=== PATIENT | male | born 1955 | race Caucasian/White ===

== ENCOUNTER 2019-12-26 09:06 | Outpatient (REF) | payer BC, SELFPAY | END 2019-12-26 09:07 | disposition home or self-care (01) | LOC: HO.LAB 09:06 | PROVIDERS: PCP Internal Medicine; Visit Provider Internal Medicine | DX: Z20.828 Contact with and (suspected) exposure to other viral communicable diseases (principal) | CPT/HCPCS: 87635 ==

== ENCOUNTER 2020-08-13 12:27 | Outpatient (REF) | payer BC, SELFPAY ==
--- NOTE | ~2020-08-13 | XR_ITS ---
EXAMINATION: XR CHEST CLINICAL INFORMATION: Shortness of breath COMPARISON: None TECHNIQUE: 2 views of the chest were obtained. FINDINGS: The cardiac and mediastinal contours are normal. There is a nodular density projecting over the right upper lobe. This measures 1 cm and abuts the right anterior first rib. There is a second retrosternal abnormal density seen on the lateral view that measures approximately 1.7 x 2.7 cm. The lungs are otherwise clear. The lungs appear well inflated questionable for COPD. There is no pleural effusion or pneumothorax. There are degenerative changes of the spine. XR/XR chest 2V IMPRESSION: Question pulmonary nodules. Follow-up chest CT scan should be considered.
== END 2020-08-13 12:28 | disposition home or self-care (01) ==
LOC: HO.HMGCX 12:27
PROVIDERS: PCP Internal Medicine; Visit Provider Nurse Practitioner Family
DX: R05 Cough (principal); R06.02 Shortness of breath
CPT/HCPCS: 71046

== ENCOUNTER 2020-09-04 09:32 | Outpatient (REF) | payer BC, SELFPAY ==
--- NOTE | ~2020-09-04 | CT_ITS ---
EXAMINATION: CT CHEST WITH CONTRAST CLINICAL INFORMATION: Question pulmonary nodule COMPARISON: X-ray 08/13/2020 TECHNIQUE: Multidetector volumetric CT imaging of the chest was obtained after the administration of 50 mL of Omnipaque 350 intravenous contrast without immediate adverse reactions. Axial MIP volume rendering provided. Sagittal and coronal reformatted images were obtained. This CT examination was performed using dose optimization techniques as appropriate, variously including the following: *Automated exposure control *Adjustment of mA and/or kV according to patient size (this includes techniques or standardized protocols for targeted exams where dose is matched to indication/reason for exam; i.e. extremities or head) *Use of iterative reconstruction technique DLP: 183 mGy-cm FINDINGS: [employer]: Unremarkable LUNGS: The lungs are well-expanded with no visible pulmonary nodule, mass or consolidation. MEDIASTINUM: The thyroid lobes are symmetric and normal. The central trachea and the bronchi are widely patent. The heart size and the great vessels are normal caliber there are coronary artery calcifications present. There is no pericardial effusion. There are benign mediastinal lymph nodes. PLEURA: There is no pleural effusion. No pleural mass or thickening. AXILLA: No lymphadenopathy. UPPER ABDOMEN: The liver is diffusely attenuated. No focal lesion or mass seen. No intrahepatic ductal dilatation. OSSEOUS STRUCTURES: There is moderate ventral spondylosis mid and lower dorsal spine. No lytic or sclerotic process seen. CT/CT chest w con IMPRESSION: No pulmonary nodules seen. Essentially unremarkable CT chest exam.
[2020-09-04] MEDS: iohexoL 350 MG/ML 100 ML INFUS..BTL IV (10:59)
== END 2020-09-04 09:33 | disposition home or self-care (01) ==
LOC: HO.CT 09:32
PROVIDERS: PCP Internal Medicine; Visit Provider Internal Medicine
DX: R91.8 Other nonspecific abnormal finding of lung field (principal); I10 Essential (primary) hypertension; E11.65 Type 2 diabetes mellitus with hyperglycemia
CPT/HCPCS: 71260; Q9967

== ENCOUNTER 2021-10-07 17:52 | Emergency (ER) | payer BC, SELFPAY ==
--- NOTE | ~2021-10-07 | XR_ITS ---
EXAMINATION: XR CHEST CLINICAL INFORMATION: Short of breath COMPARISON: 08/13/2020 TECHNIQUE: Frontal view of the chest was obtained. FINDINGS: Cardiac leads overlie the chest. The lungs are well expanded. Moderate right-sided pleural effusion with airspace opacity. Central vascular prominence. No pneumothorax. The cardiomediastinal silhouette is within normal limits. XR/XR chest 1V IMPRESSION: Moderate right pleural effusion with airspace opacity which could be atelectasis or pneumonia. Evidence of mild fluid overload.
--- NOTE | 2021-10-07 17:57 | ECG_ITS ---
Test Reason : CP Blood Pressure : / mmHG Vent. Rate : 063 BPM Atrial Rate : 000 BPM P-R Int : 000 ms QRS Dur : 082 ms QT Int : 432 ms P-R-T Axes : 000 -06 077 degrees QTc Int : 442 ms Normal sinus rhythm with 1st degree A-V block with junctional escape Nonspecific T wave abnormality Abnormal ECG When compared with ECG of 07-OCT-2021 17:59, Premature ventricular complexes are not present Referred By: Nia Adams Electronically Signed By:LILLI BUSH MD
[2021-10-07 18:01] VITALS: BP 206/80; PULSE 57; RESP 22; TEMP 37.2; O2SAT 88; BMI 32.1
[2021-10-07 18:15] LABS: MANUAL DIFF FLAG NO
[2021-10-07 18:29] LABS: Basophils Absolute Auto 0.1 X10*3/uL (0.0-0.2); Basophils Percent Auto 0.5 % (0-2); Eosinophils Absolute Auto 0.3 X10*3/uL (0.0-0.4); Eosinophils Percent Auto 2.5 % (0-4); Hematocrit 35.7 % (42.0-52.0); Hemoglobin 11.9 g/dl (14.0-18.0); Imm Gran Abs Auto 0.03 X10*3/uL (0.00-0.03); Imm Gran Pct Auto 0.3 % (0.0-0.4); Lymphocytes Percent Auto 19.5 % (20-40); Mean Corpuscular HGB Conc 33.3 g/dl (31.0-36.0); Mean Corpuscular Hemoglobin 29.5 pg (27.0-33.0); Mean Corpuscular Volume 88.6 fL (80.0-98.0); Mean Platelet Volume 9.9 fL (9.4-12.4); Monocytes Absolute Auto 0.9 X10*3/uL (0.1-1.2); Monocytes Percent Auto 8.5 % (2-11); Neutrophils Absolute Auto 6.9 x10*3/uL (2.0-8.3); Neutrophils Percent Auto 68.7 % (45-73); Platelet Count 358 X10*3/uL (160-400); Red Blood Count 4.03 X10*6/uL (4.60-5.80); Red Cell Distribution Width 13.3 % (11.0-16.0); White Blood Count 10.1 X10*3/uL (4.8-10.8)
[2021-10-07 18:37] LABS: COVID-19 Test Negative (Negative)
[2021-10-07 18:47] LABS: Alanine Aminotransferase 10 U/L (0-40); Albumin Level 2.8 g/dL (3.5-5.0); Alkaline Phosphatase 104 U/L (39-117); Anion Gap 14 (12-20); Aspartate Amino Transferase 16 U/L (5-37); Bilirubin Total 0.3 mg/dL (0.0-1.0); Blood Urea Nitrogen 20 mg/dL (9-16); Calcium 8.4 mg/dL (8.4-10.2); Carbon Dioxide 27 mmol/L (22-29); Chloride 102 mmol/L (96-108); Creatinine Clr Calc Pharmacy 72.4; Estimated Glomerular Filt Rate 52; Glucose Random 180 mg/dL (60-115); Potassium 4.5 mmol/L (3.3-5.1); Sodium 138 mmol/L (135-145); Total Protein 6.3 g/dL (6.5-8.0)
[2021-10-07 18:50] LABS: B Type Natriuretic Peptide 1213 pg/mL (<100)
--- NOTE | 2021-10-07 18:55 | ED.SOB ---
HPI - SOB/Dyspnea General Chief Complaint: Dyspnea Stated Complaint: Diff Breathing Time Seen by Provider: 10/07/21 18:36 Source: patient and family () Mode of arrival: ambulatory History of Present Illness HPI Narrative: 66-year-old male who is an everyday smoker now with presentation for 2-3 weeks of worsening shortness of breath, lower extremity swelling, cough without fever or chills, recent travel to [place] denies any chest pain/palpitations, GI or symptoms. Patient is diabetic and is currently on antihypertensives as well as Lasix, metformin and insulin. In addition, patient has COPD but is not reliant on oxygen. Related Data Home Medications Medication Instructions Recorded Confirmed amlodipine 5 mg tablet 5 mg PO DAILY 08/13/20 atorvastatin 40 mg tablet 40 mg PO BEDTIME 08/13/20 blood sugar diagnostic #10 ea 08/13/20 empagliflozin 10 mg tablet 10 mg PO DAILY 08/13/20 gabapentin 300 mg capsule mg PO 08/13/20 ibuprofen 800 mg tablet 800 mg PO BEDTIME 08/13/20 lancets 30 gauge #100 ea 08/13/20 lisinopril 20 mg tablet 20 mg PO DAILY 08/13/20 metformin 500 mg tablet,extended 500 mg PO DAILY 08/13/20 release 24 hr pen needle, diabetic 32 gauge x #50 ea 08/13/20 5/32 sub-q insulin device, 20 unit #30 ea 08/13/20 Previous Rx's Medication Instructions Recorded albuterol sulfate 90 mcg/actuation 2 puff inhalation Q4-6H PRN 08/13/20 aerosol inhaler shortness of breath or wheezing #8.5 grams benzonatate 100 mg capsule 100 mg PO BID-TID PRN cough #20 08/13/20 caps doxycycline monohydrate 100 mg 100 mg PO BID 10 days #20 caps 08/13/20 capsule prednisone 20 mg tablet 40 mg PO DAILY 5 days #10 tabs 08/13/20 Allergies Allergy/AdvReac Type Severity Reaction Status Date / Time No Known Allergies Allergy Verified 10/07/21 18:00 Review of Systems Review of Systems: Pertinent positives and negatives as stated in HPI and 10 point review of systems is otherwise negative. PMFSH Past Medical History Source: nursing notes reviewed Social History Social History Advance Directives: No Advance Directives Information Provided: No Physical Exam Vital Signs: Vital Signs: Last Vital Signs Temp 98.5 F 10/07/21 19:59 Pulse 56 10/07/21 19:59 Resp 25 H 10/07/21 19:59 BP 211/88 H 10/07/21 19:59 Pulse Ox 95 10/07/21 19:59 O2 Del Method 10/07/21 18:01 O2 Flow Rate 2.5 10/07/21 19:59 BMI result Body Mass Index 32.5 VITAL SIGNS: Reviewed. GENERAL: Well developed, well nourished, in no acute distress. HEAD: Normocephalic/atraumatic EYES: PERRLA, EOMI EARS: Ext canals without abnormality OROPHARYNX: no oral lesions noted, posterior pharynx clear LUNGS: Good inspiratory effort with decreased breath sounds in the bases, right greater than left, no wheeze/rhonchi/rales. SpO2<88> on room air and when placed on 2 L via nasal cannula responded well and is now saturating at 95% CARDIOVASCULAR: Regular rate and rhythm without noted murmurs, no JVD but bilateral lower extremity 1+ pitting edema ABDOMEN: Soft, non-tender, non-distended with bowel sounds. No rigidity. No guarding. No palpable masses or hernias noted MUSCULOSKELETAL: No tenderness, deformities, or effusions noted on gross inspection. EXTREMITIES: No cyanosis, clubbing or edema. SKIN: Inspection of the skin reveals no rashes, ulcerations, jaundice, pallor, or petechiae. NEUROLOGIC: Alert and oriented x 4. Strength and sensation to light touch were grossly intact x 4. Course Course Course Narrative: 1845: 66-year-old male with history and clinical presentation and will be evaluated for COPD, CHF, pneumonia, PE. On review of all investigations patient is noted to have questionable Wellens sign that was discussed with Cardiology, troponin is over 1400 and BNP is over 1200. No evidence to suggest COPD exacerbation. Patient is hypoxic and requiring 2 L of nasal cannula but otherwise remains hemodynamically stable. COVID-19 is negative. Reevaluation(s) Reevaluation #1: I discussed case with Cardiology because concerns for Wellens morphology in the precordial leads, however cardiology does not think that is the rhythm but does recommend serial troponins, IV heparin and starting nitrates. Time: 19:07 Reevaluation #2: I discussed this case with Dr. Wilkinson at [facility] who accepts transfer. Time: 19:40 MDM - SOB/Dyspnea Lab Data Result diagrams: 10/07/21 18:03 10/07/21 18:03 Labs: Lab Results 10/07/21 10/07/21 10/07/21 Range/Units 18:03 18:03 18:03 WBC 10.1 (4.8-10.8) X10*3/uL RBC 4.03 L (4.60-5.80) X10*6/uL Hgb 11.9 L (14.0-18.0) g/dl Hct 35.7 L (42.0-52.0) % MCV 88.6 (80.0-98.0) fL MCH 29.5 (27.0-33.0) pg MCHC 33.3 (31.0-36.0) g/dl RDW 13.3 (11.0-16.0) % Plt Count 358 (160-400) X10*3/uL MPV 9.9 (9.4-12.4) fL Immature Gran % (Auto) 0.3 (0.0-0.4) % Neut % (Auto) 68.7 (45-73) % Lymph % (Auto) 19.5 L (20-40) % [place] % (Auto) 8.5 (2-11) % Eos % (Auto) 2.5 (0-4) % Baso % (Auto) 0.5 (0-2) % Lymph # (Auto) 2.0 (1.2-4.9) X10*3/uL [place] # (Auto) 0.9 (0.1-1.2) X10*3/uL Eos # (Auto) 0.3 (0.0-0.4) X10*3/uL Baso # (Auto) 0.1 (0.0-0.2) X10*3/uL Abs Immat Gran (auto) 0.03 (0.00-0.03) X10*3/uL Absolute Neuts (auto) 6.9 (2.0-8.3) x10*3/uL Absolute Nucleated RBC 0.000 (0.0-0.012) X10*3/uL Nucleated RBC % (auto) 0.0 (0.0-0.2) /100WBC PT (10.0-13.1) SEC INR (0.9-1.1) APTT (26.0-36.4) SEC VBG pH (7.32-7.43) VBG pCO2 mmHg VBG pO2 mmHg VBG HCO3 (22-26) mmol/L VBG O2 Saturation % VBG Base Excess mmol/L Sodium 138 (135-145) mmol/L Potassium 4.5 (3.3-5.1) mmol/L Chloride 102 (96-108) mmol/L Carbon Dioxide 27 (22-29) mmol/L Anion Gap 14 (12-20) BUN 20 H (9-16) mg/dL Creatinine 1.38 (0.5-1.4) mg/dL Estim Creat Clear Calc 72.4 Estimated GFR 52 Random Glucose 180 H (60-115) mg/dL Lactic Acid (0.5-2.0) mmol/L Calcium 8.4 (8.4-10.2) mg/dL Total Bilirubin 0.3 (0.0-1.0) mg/dL AST 16 (5-37) U/L ALT 10 (0-40) U/L Alkaline Phosphatase 104 (39-117) U/L Troponin I High Sens 1453.5 H* (<3.5-35.0) ng/L B-Natriuretic Peptide (<100) pg/mL Total Protein 6.3 L (6.5-8.0) g/dL Albumin 2.8 L (3.5-5.0) g/dL COVID-19 (YESSY) (Negative) COVID-19 Clin Com 10/07/21 10/07/21 10/07/21 Range/Units 18:03 18:03 18:57 WBC (4.8-10.8) X10*3/uL RBC (4.60-5.80) X10*6/uL Hgb (14.0-18.0) g/dl Hct (42.0-52.0) % MCV (80.0-98.0) fL MCH (27.0-33.0) pg MCHC (31.0-36.0) g/dl RDW (11.0-16.0) % Plt Count (160-400) X10*3/uL MPV (9.4-12.4) fL Immature Gran % (Auto) (0.0-0.4) % Neut % (Auto) (45-73) % Lymph % (Auto) (20-40) % [place] % (Auto) (2-11) % Eos % (Auto) (0-4) % Baso % (Auto) (0-2) % Lymph # (Auto) (1.2-4.9) X10*3/uL [place] # (Auto) (0.1-1.2) X10*3/uL Eos # (Auto) (0.0-0.4) X10*3/uL Baso # (Auto) (0.0-0.2) X10*3/uL Abs Immat Gran (auto) (0.00-0.03) X10*3/uL Absolute Neuts (auto) (2.0-8.3) x10*3/uL Absolute Nucleated RBC (0.0-0.012) X10*3/uL Nucleated RBC % (auto) (0.0-0.2) /100WBC PT (10.0-13.1) SEC INR (0.9-1.1) APTT (26.0-36.4) SEC VBG pH (7.32-7.43) VBG pCO2 mmHg VBG pO2 mmHg VBG HCO3 (22-26) mmol/L VBG O2 Saturation % VBG Base Excess mmol/L Sodium (135-145) mmol/L Potassium (3.3-5.1) mmol/L Chloride (96-108) mmol/L Carbon Dioxide (22-29) mmol/L Anion Gap (12-20) BUN (9-16) mg/dL Creatinine (0.5-1.4) mg/dL Estim Creat Clear Calc Estimated GFR Random Glucose (60-115) mg/dL Lactic Acid 0.7 (0.5-2.0) mmol/L Calcium (8.4-10.2) mg/dL Total Bilirubin (0.0-1.0) mg/dL AST (5-37) U/L ALT (0-40) U/L Alkaline Phosphatase (39-117) U/L Troponin I High Sens (<3.5-35.0) ng/L B-Natriuretic Peptide 1213 H (<100) pg/mL Total Protein (6.5-8.0) g/dL Albumin (3.5-5.0) g/dL COVID-19 (YESSY) Negative (Negative) COVID-19 Clin Com See Note 10/07/21 10/07/21 Range/Units 19:10 19:25 WBC (4.8-10.8) X10*3/uL RBC (4.60-5.80) X10*6/uL Hgb (14.0-18.0) g/dl Hct (42.0-52.0) % MCV (80.0-98.0) fL MCH (27.0-33.0) pg MCHC (31.0-36.0) g/dl RDW (11.0-16.0) % Plt Count (160-400) X10*3/uL MPV (9.4-12.4) fL Immature Gran % (Auto) (0.0-0.4) % Neut % (Auto) (45-73) % Lymph % (Auto) (20-40) % [place] % (Auto) (2-11) % Eos % (Auto) (0-4) % Baso % (Auto) (0-2) % Lymph # (Auto) (1.2-4.9) X10*3/uL [place] # (Auto) (0.1-1.2) X10*3/uL Eos # (Auto) (0.0-0.4) X10*3/uL Baso # (Auto) (0.0-0.2) X10*3/uL Abs Immat Gran (auto) (0.00-0.03) X10*3/uL Absolute Neuts (auto) (2.0-8.3) x10*3/uL Absolute Nucleated RBC (0.0-0.012) X10*3/uL Nucleated RBC % (auto) (0.0-0.2) /100WBC PT 11.2 (10.0-13.1) SEC INR 1.0 (0.9-1.1) APTT 45.8 H (26.0-36.4) SEC VBG pH 7.33 (7.32-7.43) VBG pCO2 58 mmHg VBG pO2 47 mmHg VBG HCO3 31 H (22-26) mmol/L VBG O2 Saturation 68.0 % VBG Base Excess 3.8 mmol/L Sodium (135-145) mmol/L Potassium (3.3-5.1) mmol/L Chloride (96-108) mmol/L Carbon Dioxide (22-29) mmol/L Anion Gap (12-20) BUN (9-16) mg/dL Creatinine (0.5-1.4) mg/dL Estim Creat Clear Calc Estimated GFR Random Glucose (60-115) mg/dL Lactic Acid (0.5-2.0) mmol/L Calcium (8.4-10.2) mg/dL Total Bilirubin (0.0-1.0) mg/dL AST (5-37) U/L ALT (0-40) U/L Alkaline Phosphatase (39-117) U/L Troponin I High Sens (<3.5-35.0) ng/L B-Natriuretic Peptide (<100) pg/mL Total Protein (6.5-8.0) g/dL Albumin (3.5-5.0) g/dL COVID-19 (YESSY) (Negative) COVID-19 Clin Com Critical Care Time Critical Care Time Critical Care Time: Yes Total Critical Care Time: 30 Attestation: I personally attest to this time spent taking care of the patient. Discharge Plan Discharge Clinical Impression: Non-ST elevation CA (NSTEMI), CHF exacerbation, Third degree heart block Patient Disposition: Xfer Acute Care Hospital Transfer Details: Higher level of care, and STEMI with congestive heart failure and questionable third-degree block Prescriptions: No Action (DME) V-GO 20 Device See Rx Instructions .ROUTE .MEDSUPPLY Qty: 30 Rx Instructions: As directed lisinopril 20 mg tablet 20 mg PO DAILY (DME) pen needle, diabetic 32 gauge x needle See Rx Instructions .ROUTE .MEDSUPPLY Qty: 50 Rx Instructions: As directed metformin 500 mg tablet extended release 24 hr 500 mg PO DAILY Jardiance 10 mg tablet 10 mg PO DAILY (DME) lancets 30 gauge misc See Rx Instructions .ROUTE .MEDSUPPLY Qty: 100 Rx Instructions: As directed (DME) OneTouch Verio test strips Strip See Rx Instructions Not Applicable BID Qty: 10 Rx Instructions: As directed atorvastatin 40 mg tablet 40 mg PO BEDTIME gabapentin 300 mg capsule PO amlodipine 5 mg tablet 5 mg PO DAILY ibuprofen 800 mg tablet 800 mg PO BEDTIME doxycycline monohydrate 100 mg capsule 100 mg PO BID 10 Days Qty: 20 0RF prednisone 20 mg tablet 40 mg PO DAILY 5 Days Qty: 10 0RF albuterol sulfate 90 mcg/actuation HFA aerosol inhaler 2 puff inhalation Q4-6H PRN (Reason: shortness of breath or wheezing) Qty: 8.5 1RF benzonatate 100 mg capsule 100 mg PO BID-TID PRN (Reason: cough) Qty: 20 0RF
[2021-10-07 19:16] LABS: Venous Blood Gas Refer to POC result
[2021-10-07 19:16] LABS: VBG Base Excess 3.8 mmol/L; VBG HCO3 31 mmol/L (22-26); VBG pCO2 58 mmHg; VBG pH 7.33 (7.32-7.43); VBG pO2 47 mmHg
[2021-10-07] MEDS: hydrALAZINE HCl 20 MG/ML VIAL 5 MG IVPUSH (19:18)
[2021-10-07 19:20] LABS: Lactic Acid 0.7 mmol/L (0.5-2.0)
[2021-10-07] MEDS: Furosemide 100 MG/10 ML VIAL 60 MG IVPUSH (19:21)
[2021-10-07 19:27] VITALS: BMI 32.5
[2021-10-07 19:36] LABS: Prothrombin Time 11.2 SEC (10.0-13.1)
[2021-10-07 19:38] LABS: Partial Thromboplastin Time 45.8 SEC (26.0-36.4)
--- NOTE | 2021-10-07 19:39 | PC.NURSE ---
call out to [facility] transfer line @[phone] waiting from call back from cardiology
[2021-10-07] MEDS: Heparin Sodium,Porcine 5,000 UNIT/ML VIAL 4000 UNIT IVPUSH (19:45)
[2021-10-07 19:55] VITALS: BP 188/74; PULSE 63
[2021-10-07] MEDS: Nitroglycerin/D5W 100 MG/250 ML INFUS..BTL IVCONT (19:55)
[2021-10-07 19:59] VITALS: BP 211/88; PULSE 56; RESP 25; TEMP 36.9; O2SAT 95
--- NOTE | 2021-10-07 20:08 | PC.NURSE ---
bed assignment is [facility] m3 room 12 nurse to nurse [phone]
[2021-10-07 20:17] LABS: Alanine Aminotransferase 10 U/L (0-40); Albumin Level 2.8 g/dL (3.5-5.0); Alkaline Phosphatase 105 U/L (39-117); Anion Gap 13 (12-20); Aspartate Amino Transferase 15 U/L (5-37); Bilirubin Total 0.3 mg/dL (0.0-1.0); Blood Urea Nitrogen 19 mg/dL (9-16); Calcium 8.4 mg/dL (8.4-10.2); Carbon Dioxide 27 mmol/L (22-29); Chloride 103 mmol/L (96-108); Creatinine Clr Calc Pharmacy 76.1; Estimated Glomerular Filt Rate 55; Glucose Random 161 mg/dL (60-115); Potassium 4.3 mmol/L (3.3-5.1); Sodium 139 mmol/L (135-145); Total Protein 6.5 g/dL (6.5-8.0)
--- NOTE | 2021-10-07 20:18 | PC.NURSE ---
call out to [facility] @[phone] spoke to Yulia, she will be calling back with an ETA
[2021-10-07 20:23] LABS: Hematocrit 35.8 % (42.0-52.0); Mean Corpuscular HGB Conc 33.5 g/dl (31.0-36.0); Mean Corpuscular Hemoglobin 29.8 pg (27.0-33.0); Mean Corpuscular Volume 88.8 fL (80.0-98.0); Mean Platelet Volume 9.7 fL (9.4-12.4); Platelet Count 355 X10*3/uL (160-400); Red Blood Count 4.03 X10*6/uL (4.60-5.80); Red Cell Distribution Width 13.3 % (11.0-16.0); White Blood Count 11.1 X10*3/uL (4.8-10.8)
--- NOTE | 2021-10-07 20:29 | PC.NURSE ---
MARY ALICE from [facility] called at @[phone]. [facility] will be transporting patient to [facility]
[2021-10-07] MEDS: Heparin Sodium,Porcine/1/2NS 25,000 UNIT/250 ML IV.SOLN 13.79 UNIT IVCONT (20:42)
[2021-10-07 20:45] VITALS: BP 189/66; PULSE 56; RESP 16; O2SAT 94
[2021-10-07 20:49] LABS: PTT Heparin Drip 176.6 SEC (53-77.9)
--- NOTE | 2021-10-07 20:54 | PC.NURSE ---
[facility] called with an update on transport from [facility]. [facility] will arrive around 2129
[2021-10-07] MEDS: Heparin Sodium,Porcine/1/2NS 25,000 UNIT/250 ML IV.SOLN 11.49 UNIT IVCONT ×2 (21:08→21:27)
[2021-10-07 21:15] VITALS: BP 160/71; PULSE 63; RESP 16; O2SAT 94
[2021-10-07 21:19] VITALS: RESP 16
[2021-10-07] MEDS: fentaNYL citrate/PF 100 MCG/2 ML VIAL 25 MCG IVPUSH ×2 (21:19→22:50)
== END 2021-10-07 22:56 | disposition short-term general hospital (02) ==
PROVIDERS: Emergency Provider Student in an Organized Health Care Education/Training Program; PCP Internal Medicine
DX: I21.4 Non-ST elevation (NSTEMI) myocardial infarction (principal); I44.2 Atrioventricular block, complete; I50.9 Heart failure, unspecified; R07.89 Other chest pain; R06.02 Shortness of breath; R05.9 Cough, unspecified; Z20.822 Contact with and (suspected) exposure to COVID-19; Z79.899 Other long term (current) drug therapy
CPT/HCPCS: 36415; 71045; 80053; 82803; 83605; 83880; 84484; 85025; 85027; 85610; 85730; 87040; 87635; 93005; 96365; 96366; 96375; 96376; 99285; J1940; J3010